=== PATIENT | male | born 1950 ===

== ENCOUNTER 2016-09-28 11:39 | Day surgery (SDC) | payer MEDICARE, MEDICAID ==
[2016-08-07 10:40] VITALS: BMI 27.4
[2016-09-28] MEDS ORDERED: Propofol 10 mg/ml Inj (20 ML) ONE (12:11)
[2016-09-28] MEDS ORDERED: Lidocaine Hydrochloride 5 ML INJ ONE (12:12)
--- NOTE | 2016-09-28 12:56 | CP.SDSHP ---
Same Day Surgery H & P - History Proposed Procedure: Colonoscopy - Previous Medical/Surgical History Cardiac: Hypertension Endocrine/Metabolic: Diabetes - Allergies Allergies: Allergies No Known Allergies Allergy (Verified 03/30/14 16:37) - Date & Time Date: 09/28/16 Time: 12:56 Short Stay Discharge - Short Stay Discharge Admitting Diagnosis/Reason for Visit: ENCOUNTER FOR SCREENING FOR MALIGNANT NEOPLASM OF Disposition: HOME/ ROUTINE
[2016-09-28] MEDS ORDERED: Lactated Ringer's 1,000 ML IV SCH (14:30)
[2016-09-30 15:38] VITALS: BP 141/73; RESP 17; TEMP 97.4
[2016-09-30 15:39] VITALS: PULSE 81; O2SAT 100
== END 2016-09-28 15:31 | disposition home or self-care (01) ==
LOC: C.ENDO 11:39
PROVIDERS: ATTEND Colon & Rectal Surgery
DX: Z12.11 Encounter for screening for malignant neoplasm of colon (principal); D50.9 Iron deficiency anemia, unspecified; D12.0 Benign neoplasm of cecum; D12.4 Benign neoplasm of descending colon; E11.9 Type 2 diabetes mellitus without complications; I10 Essential (primary) hypertension
CPT/HCPCS: 45380; 45385; 82948; 88305; J2704; J7120